=== PATIENT | female | born 1940 | race Caucasian/White ===

== ENCOUNTER → 2017-09-23 | Outpatient (CLI) | payer MEDICARE, BC ==
[~2017-09-23] MED LIST: CIPRO 500MG TA500 MG PO; CLINDAMYCIN HC300 MG PO; DILTIAZEM ER 2240 MG PO; KLOR-CON M2020 MEQ PO; LASIX40 MG PO; LIDODERM 5% PA1 EACH TD; MULTAQ400 M1 PO; XARELTO20 MG PO
--- NOTE | 2017-09-29 08:57 | RADIOLOGY REPORT PS360 ---
DIG MAMM-SCREEN MIGUEL W/CAD CAD Screening COMPARISON: Digital mammograms 09/22/2014 and 10/10/2015 INDICATION: There is a history of breast cancer patient's sister. TECHNIQUE: Standard CC and MLO images were obtained. R2 CAD reviewed. FINDINGS: The breasts are composed primarily of fat with scattered fibroglandular densities in the central portions bilaterally. There is minimal arterial calcification right breast. There are stable nodular densities in the axillary tails of each breast likely a low-lying nodes. There are scattered tiny benign-appearing microcalcifications in each breast. There is no suspicious lesion and there are no suspicious microcalcifications. IMPRESSION: Fibrofatty parenchyma with no suspicious lesion seen recommend yearly follow-up BI-RADS CATEGORY: 2_Benign RECOMMENDED FOLLOWUP: 12M 12 MONTH FOLLOW-UP (A letter has been sent to the patient regarding results of the study.)
== END ==
LOC: RAD 09:18
DX: Z12.31 Encounter for screening mammogram for malignant neoplasm of breast (principal)
CPT/HCPCS: G0202